=== PATIENT | female | born 1970 | race African-American/Black ===

== ENCOUNTER 2019-02-06 10:12 | Inpatient (IN) | payer MEDICAID ==
[~2019-02-06] VITALS: Ht 167.6 cm; Wt 55.0 kg
--- NOTE | 2019-02-06 07:30 | NUR ---
RN OPEN NOTES RECEIVED PATIENT RESTING IN BED WITH FAMILY AT BEDSIDE. A/OX3. NO SIGNS OF DISTRESS OR DISCOMFORT. BREATHING EVEN AND UNLABORED. HAS RCW PORTACATH WITH D5NS INFUSING, PATENT AND INTACT, NO SIGNS OF REDNESS OR INFILTRATION. PATIENT STILL REFUSING TO HAVE NGT INSERTED, PATIENT EDUCATION REINFORCED. BED IN LOW LOCKED POSITION WITH SIDE RAILS X2. CALL LIGHT WITHIN REACH. WILL CONTINUE TO MONITOR. Addendum: 02/07/19 at 0733 by MIKE CHASE RN ERROR: WRONG TIME DOCUMENTED.
--- NOTE | 2019-02-06 10:15 | NUR ---
[id number] C/O WEAKNESS, NO APPETITE, ON CHEMO LAST TX 2 WEEKS AGO. AOX3, TO ER BED 1, HOOKED TO MONITOR, CHANGED TO GOWN, PROVIDED W WARM BLANKET, AWAITING MD LOMELI.
--- NOTE | 2019-02-06 10:24 | NUR ---
DR TOMAS AT BEDSIDE
[2019-02-06] MEDS ORDERED: IV NS 0.9% 1,000 ML BAG IV ONE (10:30)
[2019-02-06] MEDS ORDERED: HYDROMORPHONE INJ 2 MG/ML DISP.SYRIN IV ONE ×2 (10:30→11:30)
[2019-02-06] MEDS ORDERED: ONDANSETRON HCL/PF 4 MG/2 ML VIAL IVP ONE (10:30)
[2019-02-06 10:40] LABS: BASOPHILS % (AUTO) 0.3 % (0.0-2.0); EOSINOPHILS % (AUTO) 0.1 % (0.0-6.0); HEMATOCRIT 26 % (33-45); HEMOGLOBIN 8.7 g/dL (11.5-14.8); LYMPHOCYTES # (AUTO) 0.8 /CMM (0.8-4.8); LYMPHOCYTES % (AUTO) 9.9 % (20.0-44.0); MEAN CORPUSCULAR HGB CONC 33 g/dl (31.0-36.0); MEAN CORPUSCULAR VOLUME 83 fL (82-100); MONOCYTES # (AUTO) 1.2 /CMM (0.1-1.30); NEUTROPHILS # (AUTO) 6.3 /CMM (1.8-8.9); NEUTROPHILS % (AUTO) 75.7 % (43.0-81.0); PLATELET COUNT (AUTO) 259 /CMM (150-450); RED BLOOD CELL COUNT(AUTO) 3.13 MIL/uL (4.0-5.2); WHITE BLOOD COUNT (AUTO) 8.3 K/uL (4.3-11.0)
--- NOTE | 2019-02-06 10:45 | NUR ---
WHEELED OUT VIA [facility] FOR CT SCAN.
[2019-02-06] MEDS ORDERED: HYDROMORPHONE 1 MG/1 ML DISP.SYRIN ONE (10:49)
[2019-02-06] MEDS ORDERED: ONDANSETRON HCL/PF 4 MG/2 ML VIAL ONE (10:49)
[2019-02-06 10:50] LABS: CALCIUM, SERUM 8.3 mg/dL (8.5-10.1); CREATININE 0.5 mg/dL (0.6-1.3); POTASSIUM 4.1 mmol/L (3.5-5.1)
[2019-02-06 11:02] LABS: ALBUMIN 3.3 g/dL (3.4-5.0); BILIRUBIN,TOTAL 1.6 mg/dL (0.2-1.0); TOTAL PROTEIN, SERUM 5.8 g/dL (6.4-8.2)
[2019-02-06] MEDS ORDERED: HYDROMORPHONE INJ 2 MG/ML DISP.SYRIN ONE (11:30)
[2019-02-06 11:35] LABS: APPEARANCE,URINE Clear (CLEAR); BILIRUBIN,URINE SMALL (NEGATIVE); BLOOD, URINE Negative Ery/uL (NEGATIVE); COLOR,URINE Dark (YELLOW); KETONES,URINE Trace (NEGATIVE); LEUKOCYTE ESTERASE ,URINE Trace (NEGATIVE); NITRITE, URINE Negative (NEGATIVE); PROTEIN,URINE Trace mg/dl (NEGATIVE); UGLUCOSE Negative (NEGATIVE); UROBILINOGEN,URINE 0.2 EU/dL (0.2)
[2019-02-06 11:57] LABS: BACTERIA,URINE Few /HPF (None Seen); RBC,URINE 0-2 /HPF (0-2); SQUAMOUS EPITHELIAL CELL,UR Few /HPF (None Seen); WBC,URINE 0-3 /HPF (0-3)
[2019-02-06] MEDS ORDERED: FENTANYL PF 100MCG/2ML AMPUL ONE (12:13)
[2019-02-06] MEDS ORDERED: FENTANYL PF 100MCG/2ML AMPUL IV ONE (12:30)
--- NOTE | 2019-02-06 12:48 | NUR ---
UNABLE TO OBTAINED INFO RE: HOME MEDICATION. FAMILY AT BED SIDE, WILL PROVIDE INFO LATER. ER-PRIMARY NURSE AWARE.
--- NOTE | 2019-02-06 13:21 | NUR ---
201-MS. PRIMARY NURSE AWARE.
--- NOTE | 2019-02-06 13:28 | NUR ---
CALLED [facility], PAGED ZACH ANDERSON
--- NOTE | 2019-02-06 13:36 | NUR ---
REPORT GIVEN TO MS OMER ROWLEY OF MED-SURG UNIT
--- NOTE | 2019-02-06 13:42 | NUR ---
CALLED [facility], PAGED ZACH ANDERSON
[2019-02-06 14:45] VITALS: BP 103/73
--- NOTE | 2019-02-06 14:45 | NUR ---
MS ORTHOPEDIC ASSISTANT NOTE PT ARRIVED TO MS UNIT VIA GURNEY IN STABLE CONDITION. PT IS A/O X3, AFEBRLE. RESPIRATIONS ARE EVEN AND UNLABORED, NOT IN ANY ACUTE DISTRESS NOTED. PUPILS ARE REACTIVE TO LIGHT, BILATERAL HAND RECREATIONAL RESORT MANAGER ARE STRONG AND EQUAL. DENIES ANY CHEST PAIN, SOB, N/V AT THIS TIME. ABDOMEN IS A BIT DISTENDED. C/O ABD PAIN 7/10. DENIES ANY BLADDER DISCOMFORT. RCW PORTACATH INTACT, DRESSING KEPT CLEAN AND DRY. PT NOTED WITH DRY SKIN, MULTIPLE SCRATCHES THAT LOOK LIKE DARKENED STRETCH MENDEZ TO ABDOMEN, LEFT/RIGHT HIPS, BILAT ELBOW REDNESS AND DISCOLORATIONS TO BLE. PICTURES TAKEN AND PLACED IN CHART. ALL BELONGINGS ACCOUNTED FOR. DAUGHTER BRENNEN AT BEDSIDE. INSTRUCTED PT TO USE CALL LIGHT WHEN ASSISTANCE IS NEEDED, CALL LIGHT IS LEFT WITHIN REACH. SAFETY MEASURES IN PLACE. DR. SERRANO MADE AWARE OF NEW ADMIT. WILL CONTINUE TO MONITOR THE PT THROUGHOUT SHIFT FOR CONTINUITY OF CARE.
[2019-02-06] MEDS ORDERED: ENOX40DI SQ (14:53)
[2019-02-06 16:00] VITALS: BP 103/73
[2019-02-06] MEDS ORDERED: Z GUARD REMEDY 2 OZ OINT TP PRN (16:00)
[2019-02-06] MEDS ORDERED: ONDANSETRON HCL/PF 4 MG/2 ML VIAL IVP PRN (16:00)
[2019-02-06] MEDS ORDERED: ACETAMINOPHEN 650 MG/SUPP.RECT RC PRN (16:00)
--- NOTE | 2019-02-06 16:06 | NUR ---
MS RN NOTES-- PT REFUSES NG TUBE INSERTION. EXPLAINED THE IMPORTANCE OF NG TUBE, PT STILL REFUSED. DR. SERRANO MADE AWARE.
--- NOTE | 2019-02-06 16:55 | NUR ---
MS RN NOTES-- PT REFUSED SMALL BOWEL FOLLOW THROUGH. PT STATED SHE CANNOT DRINK THE CONTRAST. EXPLAINED THE IMPORTANCE OF THE XRAY AND OFFERED TO INSERT NGT SO SHE WOULDNT HAVE TO SWALLOW THE CONTRAST. PT STILL NOTED WITH REFUSAL. DR. SERRANO MADE AWARE.
[2019-02-06] MEDS: IV D5/ 0.9% NACL 1,000 ML IV PRN (17:57)
[2019-02-06] MEDS: HYDROMORPHONE INJ 2 MG/ML DISP.SYRIN IV PRN (17:57)
--- NOTE | 2019-02-06 18:37 | NUR ---
MS RN CLOSING NOTES NEEDS MET AND ANTICIPATED. PT REMAINS A/O X3, AFEBRILE. RESPIRATIONS ARE EVEN AND UNLABORED, NOT IN ANY ACUTE DISTRESS NOTED. PT DENIES ANY PAIN AT THIS TIME, NO C/O SOB, N/V. RCW PORTACATH INTACT, DRESSING KEPT CLEAN AND DRY. SAFETY MEASURES ARE IN PLACE. FAMILY AT BEDSIDE. REMINDED PT TO USE CALL LIGHT WHEN ASSISTANCE IS NEEDED, CALL LIGHT IS LEFT WITHIN REACH. WILL MONITOR THROUGHOUT SHIFT FOR CONTINUITY OF CARE.
--- NOTE | 2019-02-06 19:35 | NUR ---
RN OPEN NOTES RECEIVED PATIENT RESTING IN BED WITH FAMILY AT BEDSIDE. A/OX3. NO SIGNS OF DISTRESS OR DISCOMFORT. BREATHING EVEN AND UNLABORED. HAS RCW PORTACATH WITH D5NS INFUSING, PATENT AND INTACT, NO SIGNS OF REDNESS OR INFILTRATION. PATIENT STILL REFUSING TO HAVE NGT INSERTED, PATIENT EDUCATION REINFORCED. BED IN LOW LOCKED POSITION WITH SIDE RAILS X2. CALL LIGHT WITHIN REACH. WILL CONTINUE TO MONITOR.
[2019-02-06 20:00] VITALS: BP 103/82
[2019-02-06] MEDS ORDERED: ENOXAPARIN SODIUM 40 MG/0.4 ML DISP.SYRIN SQ SCH (21:00)
[2019-02-07] MEDS: HYDROMORPHONE INJ 2 MG/ML DISP.SYRIN IV PRN ×2 (00:02→05:17)
--- NOTE | 2019-02-07 00:02 | NUR ---
RN NOTES ADMINISTERED DILAUDID 2MG ORDERED FOR ABD PAIN 10/10, AT PATIENT REQUEST. VSS. WILL CONTINUE TO MONITOR.
--- NOTE | 2019-02-07 05:17 | NUR ---
RN NOTES ADMINISTERED DILAUDID 2MG ORDERED FOR ABD PAIN 02/23, AT PATIENT REQUEST. VSS. WILL CONTINUE TO MONITOR.
[2019-02-07] MEDS: IV D5/ 0.9% NACL 1,000 ML IV PRN (05:18)
[2019-02-07 06:19] LABS: BASOPHILS % (AUTO) 0.4 % (0.0-2.0); EOSINOPHILS % (AUTO) 0.3 % (0.0-6.0); HEMATOCRIT 25 % (33-45); HEMOGLOBIN 8.1 g/dL (11.5-14.8); LYMPHOCYTES # (AUTO) 0.9 /CMM (0.8-4.8); LYMPHOCYTES % (AUTO) 11.3 % (20.0-44.0); MEAN CORPUSCULAR HGB CONC 33 g/dl (31.0-36.0); MEAN CORPUSCULAR VOLUME 83 fL (82-100); MONOCYTES # (AUTO) 1.6 /CMM (0.1-1.30); MONOCYTES % (AUTO) 20.2 % (2.0-12.0); NEUTROPHILS # (AUTO) 5.3 /CMM (1.8-8.9); NEUTROPHILS % (AUTO) 67.8 % (43.0-81.0); PLATELET COUNT (AUTO) 252 /CMM (150-450); WHITE BLOOD COUNT (AUTO) 7.8 K/uL (4.3-11.0)
[2019-02-07 06:47] LABS: ALANINE AMINOTRANSFERASE 46 U/L (12-78); ALBUMIN 3.2 g/dL (3.4-5.0); ALKALINE PHOSPHATASE 334 U/L (46-116); ASPARTATE AMINOTRANSFERASE 72 U/L (15-37); BILIRUBIN,TOTAL 1.6 mg/dL (0.2-1.0); CALCIUM, SERUM 8.5 mg/dL (8.5-10.1); CARBON DIOXIDE 25 mmol/L (21-32); CHLORIDE 109 mmol/L (98-107); CREATININE 0.7 mg/dL (0.6-1.3); GLUCOSE 75 mg/dL (74-106); MAGNESIUM 1.6 mg/dL (1.8-2.4); PHOSPHORUS 3.1 mg/dL (2.5-4.9); POTASSIUM 3.9 mmol/L (3.5-5.1); SODIUM SERUM 145 mmol/L (136-145); TOTAL PROTEIN, SERUM 5.5 g/dL (6.4-8.2); UREA NITROGEN, BLOOD 6 mg/dL (7-18)
--- NOTE | 2019-02-07 07:13 | NUR ---
RN OPENING NOTE PT WAS RECEIVED IN BED AT LOWEST AND LOCKED POSITION WITH SIDE RAILS UP X2, A/O X4 BREATHING EVEN AND UNLABORED ON RA, NO CURRENT S/S OF ANY DISTRESS OR PAIN NOTED AT THIS TIME, IV IS PATENT AND INTACT, CURRENTLY NPO DUE TO SBO, INFORMED BY NIGHT RN THAT PT REFUSED SB FOLLOW THROUGH AND NGT PLACEMENT YESTERDAY, SAFETY PRECAUTIONS IN PLACE, CALL LIGHT WITHIN REACH, WILL MONITOR PT ACCORDINGLY
[2019-02-07 07:23] LABS: CHOLESTEROL 120 mg/dL (<200); LDL 88 mg/dL (0-99); TRIGLYCERIDES 108 mg/dL (30-150)
[2019-02-07 07:27] LABS: HDL CHOLESTEROL < 10 mg/dL (40-60)
--- NOTE | 2019-02-07 07:33 | NUR ---
RN CLOSING NOTES PATIENT AWAKE IN BED WITH FAMILY AT BEDSIDE. A/OX3. NO SIGNS OF DISTRESS OR DISCOMFORT. BREATHING EVEN AND UNLABORED. HAS RCW PORTACATH WITH D5NS INFUSING, PATENT AND INTACT, NO SIGNS OF REDNESS OR INFILTRATION. ALL NEEDS MET. NO SIGNIFICANT CHANGES THROUGH THE NIGHT. BED IN LOW LOCKED POSITION WITH SIDE RAILS X2. CALL LIGHT WITHIN REACH. ENDORSED TO AM SHIFT FOR KIM.
[2019-02-07 08:00] VITALS: BP 100/69
--- NOTE | 2019-02-07 08:15 | NUR ---
AMA NOTE PT LEFT AMA AT THIS TIME. SHE WAS PROVIDED EXITCARE INSTRUCTIONS AND INFORMED TO WHY SHE SHOULD NOT LEAVE AMA AT THIS TIME DUE TO HER HAVING SBO. TALKED TO HER THE NIGHT BEFORE AND I DISCUSSED IT WITH HER THIS AM AND AFTER SHE WAS INFORMED OF HER SBO SHE STILL WENT AHEAD AND SIGNED THE AMA. SHE STATES SHE HAS CHEMO SCHEDULE THAT SHE DOES NOT WANT TO MISS NO MATTER WHAT. ALL PAPERWORK WAS PROVIDED. REFUSED TO HAVE PHOTOS OF SKIN RETAKEN. PT LEFT AMA AT THIS TIME Addendum: 02/07/19 at 0925 by CATHY BAILEY RN IV AND ID BAND WERE REMOVED, LEFT WITH DAUGHTER Unique Id: [id number]
[2019-02-07] MEDS ORDERED: Magnesium 1GM/D5W 100ML PREMIX 100 ML IV SCH (11:30)
== END 2019-02-07 08:15 | disposition left against medical advice (07) | DRG 247 ==
LOC: ER 10:12 → MEDSG2 13:26
PROVIDERS: ADMIT Hospitalist; ATTEND Hospitalist
DX: K56.50 Intestinal adhesions [bands], unspecified as to partial versus complete obstruction (principal); C78.6 Secondary malignant neoplasm of retroperitoneum and peritoneum; R18.8 Other ascites; E44.0 Moderate protein-calorie malnutrition; C56.9 Malignant neoplasm of unspecified ovary; K76.0 Fatty (change of) liver, not elsewhere classified; N13.30 Unspecified hydronephrosis; Z91.19 Patient's noncompliance with other medical treatment and regimen; Z90.710 Acquired absence of both cervix and uterus; Z86.718 Personal history of other venous thrombosis and embolism; Z85.43 Personal history of malignant neoplasm of ovary; Z68.1 Body mass index [BMI] 19.9 or less, adult; D63.8 Anemia in other chronic diseases classified elsewhere
CPT/HCPCS: 36415; 80048-TC; 80053-TC; 80061-TC; 80076-TC; 81000-TC; 83605-TC; 83690-TC; 83735-TC; 84100-TC; 84702-TC; 85025-TC; 85730-TC; 87040-TC; 87081-TC; G0378; J1170; J1650; J2405; J3010; J7030; J7042